=== PATIENT | female | born 2000 | race Caucasian/White ===

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

== ENCOUNTER 2022-02-01 06:49 | Emergency (ER) | payer OTHER ==
[~2022-02-01] VITALS: Ht 157.4 cm; Wt 52.2 kg
[~2022-02-01 06:49] MED LIST changes: +ONDANSETRON4 MG SL
[2022-02-01 07:30] LABS: BASO % 0.4 % (0.0-1.0); EOS % 0.3 % (1.0-4.0); HEMATOCRIT 48.2 % (37.0-47.0); LYMPH # 1.5 10*3/uL (1.3-4.4); LYMPH % 19.5 % (27.0-41.0); MEAN CELL VOLUME 93.2 fl (81.0-99.0); MEAN CORPUSCULAR HGB 31.5 pg (27.0-31.0); MEAN CORPUSCULAR HGB CONC 33.8 g/dl (33.0-37.0); MEAN PLATELET VOLUME 9.2 fl (9.6-12.3); MONO # 0.6 10*3/uL (0.1-1.0); MONO % 7.9 % (3.0-9.0); NEUT # 5.6 10*3/uL (2.3-7.9); NEUT % 70.9 % (47.0-73.0); PLATELET COUNT AUTOMATED 337 10*3/uL (130-400); RED BLOOD COUNT 5.17 10*6/uL (4.10-5.10); RED CELL DISTRI WIDTH 11.9 % (0-14.5); WHITE BLOOD COUNT 7.9 10*3/uL (4.8-10.8)
[2022-02-01 08:15] LABS: ALKALINE PHOSPHATASE 77 U/L (45-117); BUN 2 mg/dl (7-24); CHLORIDE 108 mmol/L (98-107); SGPT/ALT 20 U/L (12-78); SODIUM 140 mmol/L (136-145)
[2022-02-01 10:03] LABS: BILIRUBIN Negative (Negative); BLOOD Negative (Negative); CLARITY Clear (Clear); COLOR Yellow (Yellow); GLUCOSE Negative (Negative); KETONE Negative (Negative); LEUKO ESTERASE Negative (Negative); NITRITE Negative (Negative)
[2022-02-01 10:21] LABS: PH 8.5 (4.5-8.0)
[2022-02-01 10:22] LABS: BACTERIA 2+; MUCOUS 2+
[2022-02-01 13:01] LABS: URINE AMPHETAMINES < 1000 (1000ng/ml); URINE BARBITURATES < 200 (200ng/ml); URINE BENZODIAZEPINES < 200 (200ng/ml); URINE CANNABINOIDS (THC) > 50 (50ng/ml); URINE COCAINE < 300 (300ng/ml); URINE METHADONE < 300 (300ng/ml); URINE OPIATES < 300 (300ng/ml)
[2022-02-01 13:12] LABS: URINE PHENCYCLIDINE < 25 (25ng/ml)
== END 2022-02-01 13:37 | disposition home or self-care (01) ==
LOC: ED 06:49
PROVIDERS: Family Medicine
DX: B34.9 Viral infection, unspecified (principal); Z20.822 Contact with and (suspected) exposure to COVID-19; F43.21 Adjustment disorder with depressed mood; F17.200 Nicotine dependence, unspecified, uncomplicated

== ENCOUNTER 2022-05-31 09:28 | Emergency (ER) | payer OTHER ==
[~2022-05-31] VITALS: Ht 157.4 cm; Wt 63.5 kg
[2022-05-31] MEDS ORDERED: DEXAMETHASONE6 MG PO (12:07)
[2022-06-02] MEDS ORDERED: Motrin,Rufen800 MG PO (14:54)
[2022-06-02] MEDS ORDERED: PHENERGAN25 M3 PO (14:54)
== END 2022-05-31 12:21 | disposition home or self-care (01) ==
LOC: ED 09:28
DX: J02.9 Acute pharyngitis, unspecified (principal); F41.9 Anxiety disorder, unspecified

== ENCOUNTER 2022-08-23 14:41 | Emergency (ER) | payer OTHER ==
[~2022-08-23] VITALS: Ht 157.4 cm; Wt 63.5 kg
[~2022-08-23 14:41] MED LIST changes: +DEXAMETHASONE6 MG PO; +Motrin,Rufen800 MG PO; +PHENERGAN25 M3 PO
[2022-08-23] MEDS ORDERED: ONDANSETRON4 MG SL (16:04)
== END 2022-08-23 16:06 | disposition home or self-care (01) ==
LOC: ED 14:41
DX: B34.9 Viral infection, unspecified (principal); F41.9 Anxiety disorder, unspecified

== ENCOUNTER 2022-09-06 10:30 | Emergency (ER) | payer OTHER ==
[~2022-09-06] VITALS: Ht 160 cm; Wt 63.5 kg
[2022-09-06] MEDS ORDERED: ONDANSETRON4 MG SL (10:48)
== END 2022-09-06 11:15 | disposition home or self-care (01) ==
LOC: ED 10:30
DX: R11.2 Nausea with vomiting, unspecified (principal); F41.9 Anxiety disorder, unspecified

== ENCOUNTER 2022-09-08 13:27 | Emergency (ER) | payer OTHER ==
[~2022-09-08] VITALS: Ht 157.4 cm; Wt 59.0 kg
[2022-09-08] MEDS ORDERED: BROMFED DM COU118 M2 PO (15:51)
== END 2022-09-08 16:11 | disposition home or self-care (01) ==
LOC: ED 13:27
DX: J02.8 Acute pharyngitis due to other specified organisms (principal); F41.9 Anxiety disorder, unspecified

== ENCOUNTER 2022-09-13 19:10 | Emergency (ER) | payer OTHER ==
[~2022-09-13] VITALS: Ht 160 cm; Wt 72.6 kg
[~2022-09-13 19:10] MED LIST changes: +BROMFED DM COU118 M2 PO
[2022-09-13] MEDS ORDERED: AMOX-CLAV 875-1 EACH PO (19:25)
== END 2022-09-13 20:50 | disposition home or self-care (01) ==
LOC: ED 19:10
DX: S61.254A Open bite of right ring finger without damage to nail, initial encounter (principal); W50.3XXA Accidental bite by another person, initial encounter; Y93.89 Activity, other specified; Y92.89 Other specified places as the place of occurrence of the external cause; Y99.8 Other external cause status

== ENCOUNTER 2023-01-03 19:20 | Emergency (ER) | payer OTHER ==
[~2023-01-03 19:20] MED LIST changes: +AMOX-CLAV 875-1 EACH PO
== END 2023-01-03 20:20 | disposition left against medical advice (07) ==
LOC: ED 19:20
DX: Z20.822 Contact with and (suspected) exposure to COVID-19 (principal); Z53.21 Procedure and treatment not carried out due to patient leaving prior to being seen by health care provider

== ENCOUNTER 2023-01-12 18:54 | Emergency (ER) | payer OTHER ==
[~2023-01-12] VITALS: Ht 165.1 cm; Wt 59.0 kg
== END 2023-01-12 21:10 | disposition home or self-care (01) ==
LOC: ED 18:54
DX: J02.9 Acute pharyngitis, unspecified (principal); R11.2 Nausea with vomiting, unspecified; R05.9 Cough, unspecified; B97.4 Respiratory syncytial virus as the cause of diseases classified elsewhere; F41.9 Anxiety disorder, unspecified; Z20.822 Contact with and (suspected) exposure to COVID-19

== ENCOUNTER → 2023-01-26 | Outpatient (CLI) | payer OTHER | END | disposition home or self-care (01) | LOC: RAD 17:26 | PROVIDERS: ATTEND Pediatrics | DX: R05.9 Cough, unspecified (principal) ==

== ENCOUNTER 2023-02-03 21:32 | Emergency (ER) | payer OTHER ==
[~2023-02-03] VITALS: Ht 157.4 cm; Wt 59.0 kg
== END 2023-02-03 23:00 | disposition home or self-care (01) ==
LOC: ED 21:32
DX: U07.1 COVID-19 (principal); R19.7 Diarrhea, unspecified

== ENCOUNTER 2023-02-13 16:41 | Emergency (ER) | payer OTHER ==
[~2023-02-13] VITALS: Ht 157.4 cm; Wt 59.0 kg
[2023-02-13] MEDS ORDERED: AVPAK AZITHROM250 M1 PO (17:14)
[2023-02-13] MEDS ORDERED: PREDNISONE20 M1 PO (17:14)
== END 2023-02-13 17:19 | disposition home or self-care (01) ==
LOC: ED 16:41
DX: J40 Bronchitis, not specified as acute or chronic (principal); F17.290 Nicotine dependence, other tobacco product, uncomplicated; F43.20 Adjustment disorder, unspecified

== ENCOUNTER → 2023-02-16 | Outpatient (CLI) | payer OTHER ==
[~2023-02-16] MED LIST changes: +AVPAK AZITHROM250 M1 PO; +PREDNISONE20 M1 PO
[2023-02-16 15:27] LABS: BASO % 0.5 % (0.0-1.0); EOS # 0.1 10*3/uL (0.0-0.4); EOS % 0.8 % (1.0-4.0); HEMATOCRIT 40.4 % (37.0-47.0); LYMPH # 1.5 10*3/uL (1.3-4.4); LYMPH % 19.9 % (27.0-41.0); MEAN CELL VOLUME 94.2 fl (81.0-99.0); MEAN CORPUSCULAR HGB 31.9 pg (27.0-31.0); MEAN CORPUSCULAR HGB CONC 33.9 g/dl (33.0-37.0); MEAN PLATELET VOLUME 9.6 fl (9.6-12.3); MONO # 0.6 10*3/uL (0.1-1.0); MONO % 8.1 % (3.0-9.0); NEUT # 5.5 10*3/uL (2.3-7.9); NEUT % 70.3 % (47.0-73.0); PLATELET COUNT AUTOMATED 291 10*3/uL (130-400); RED BLOOD COUNT 4.29 10*6/uL (4.10-5.10); RED CELL DISTRI WIDTH 11.3 % (0-14.5); WHITE BLOOD COUNT 7.8 10*3/uL (4.8-10.8)
[2023-02-17 09:08] LABS: IMMUNOGLOBULIN G, QNT 1072 mg/dL (586-1602); IMMUNOGLOBULIN M, QNT 47 mg/dL (26-217)
== END | disposition home or self-care (01) ==
LOC: LAB 14:58
PROVIDERS: ATTEND Pediatrics
DX: M35.9 Systemic involvement of connective tissue, unspecified (principal)

== ENCOUNTER 2023-02-21 19:11 | Emergency (ER) | payer OTHER ==
[~2023-02-21] VITALS: Ht 157.4 cm; Wt 61.2 kg
[2023-02-21] MEDS ORDERED: AMOX-CLAV 875-1 EACH PO (20:33)
== END 2023-02-21 21:01 | disposition home or self-care (01) ==
LOC: ED 19:11
DX: J02.8 Acute pharyngitis due to other specified organisms (principal); Z20.822 Contact with and (suspected) exposure to COVID-19; B96.89 Other specified bacterial agents as the cause of diseases classified elsewhere; R11.2 Nausea with vomiting, unspecified; F17.210 Nicotine dependence, cigarettes, uncomplicated

== ENCOUNTER 2023-03-01 18:18 | Emergency (ER) | payer OTHER ==
[~2023-03-01] VITALS: Ht 157.4 cm; Wt 61.2 kg
== END 2023-03-01 20:18 | disposition home or self-care (01) ==
LOC: ED 18:18
DX: U07.1 COVID-19 (principal); F41.9 Anxiety disorder, unspecified; Z20.822 Contact with and (suspected) exposure to COVID-19

== ENCOUNTER 2023-03-09 20:07 | Emergency (ER) | payer OTHER ==
[~2023-03-09] VITALS: Ht 157.4 cm; Wt 59.0 kg
[2023-03-09 21:39] LABS: BASO % 0.3 % (0.0-1.0); EOS # 0.1 10*3/uL (0.0-0.4); EOS % 0.6 % (1.0-4.0); HEMATOCRIT 41.3 % (37.0-47.0); LYMPH # 1.7 10*3/uL (1.3-4.4); LYMPH % 14.6 % (27.0-41.0); MEAN CELL VOLUME 95.8 fl (81.0-99.0); MEAN CORPUSCULAR HGB 31.3 pg (27.0-31.0); MEAN CORPUSCULAR HGB CONC 32.7 g/dl (33.0-37.0); MEAN PLATELET VOLUME 9.8 fl (9.6-12.3); MONO # 0.8 10*3/uL (0.1-1.0); NEUT # 9.2 10*3/uL (2.3-7.9); NEUT % 77.2 % (47.0-73.0); PLATELET COUNT AUTOMATED 325 10*3/uL (130-400); RED BLOOD COUNT 4.31 10*6/uL (4.10-5.10); RED CELL DISTRI WIDTH 11.5 % (0-14.5); WHITE BLOOD COUNT 11.9 10*3/uL (4.8-10.8)
[2023-03-09 22:03] LABS: ALKALINE PHOSPHATASE 59 U/L (46-116); BUN 11 mg/dl (9-23); CHLORIDE 103 mmol/L (98-107); LIPASE 28 U/L (12-53); POTASSIUM 4.1 mmol/L (3.4-5.1); SGPT/ALT 20 U/L (5-49); TOTAL PROTEIN 7.5 gm/dL (6.0-8.0)
[2023-03-09 22:22] LABS: B-hCG (QUALITATIVE) NEGATIVE (NEGATIVE)
[2023-03-09] MEDS ORDERED: PAXLOVID 300-11 EAC3 PO (23:15)
[2023-03-09] MEDS ORDERED: ONDANSETRON4 MG SL (23:15)
== END 2023-03-10 00:12 | disposition home or self-care (01) ==
LOC: ED 20:07
PROVIDERS: Family Medicine
DX: U07.1 COVID-19 (principal); R11.2 Nausea with vomiting, unspecified; R19.7 Diarrhea, unspecified; F41.9 Anxiety disorder, unspecified

== ENCOUNTER 2023-07-23 10:49 | Emergency (ER) | payer OTHER ==
[~2023-07-23] VITALS: Ht 157.4 cm; Wt 63.5 kg
[~2023-07-23 10:49] MED LIST changes: +PAXLOVID 300-11 EAC3 PO
[2023-07-23 11:15] LABS: BILIRUBIN Negative (Negative); BLOOD Negative (Negative); CLARITY Cloudy (Clear); COLOR Yellow (Yellow); GLUCOSE Negative (Negative); KETONE Negative (Negative); LEUKO ESTERASE 2+ (Negative); NITRITE Negative (Negative); PH 5.5 (4.5-8.0)
[2023-07-23 11:23] LABS: BASO % 0.4 % (0.0-1.0); EOS # 0.1 10*3/uL (0.0-0.4); EOS % 0.7 % (1.0-4.0); HEMATOCRIT 37.9 % (37.0-47.0); LYMPH # 1.5 10*3/uL (1.3-4.4); LYMPH % 20.5 % (27.0-41.0); MEAN CELL VOLUME 94.5 fl (81.0-99.0); MEAN CORPUSCULAR HGB 31.9 pg (27.0-31.0); MEAN CORPUSCULAR HGB CONC 33.8 g/dl (33.0-37.0); MEAN PLATELET VOLUME 9.6 fl (9.6-12.3); MONO # 0.6 10*3/uL (0.1-1.0); MONO % 8.8 % (3.0-9.0); NEUT # 4.9 10*3/uL (2.3-7.9); NEUT % 69.2 % (47.0-73.0); PLATELET COUNT AUTOMATED 260 10*3/uL (130-400); RED BLOOD COUNT 4.01 10*6/uL (4.10-5.10); RED CELL DISTRI WIDTH 11.9 % (0-14.5); WHITE BLOOD COUNT 7.1 10*3/uL (4.8-10.8)
[2023-07-23 11:29] LABS: BACTERIA 3+; EPITHELIAL CELLS 51-100
[2023-07-23 11:54] LABS: BUN 6 mg/dl (9-23); CHLORIDE 106 mmol/L (98-107); POTASSIUM 3.6 mmol/L (3.4-5.1)
[2023-07-23] MEDS ORDERED: AMOXICILLIN 875 MG TAB PO ONE (12:35)
[2023-07-23] MEDS ORDERED: AMOXICILLIN875 MG PO (12:35)
== END 2023-07-23 13:20 | disposition home or self-care (01) ==
LOC: ED 10:49
PROVIDERS: Nurse Practitioner Family
DX: O20.0 Threatened abortion (principal); F41.9 Anxiety disorder, unspecified; Z3A.01 Less than 8 weeks gestation of pregnancy

== ENCOUNTER → 2023-12-23 | Outpatient (CLI) | payer OTHER ==
[~2023-12-23] MED LIST changes: +AMOXICILLIN875 MG PO
[2023-12-24 09:08] LABS: HBSAG Negative (Negative); HEP B CORE AB, IGM Negative (Negative); HEPATITIS C ANTIBODY Non Reactive (Non Reactive)
[2023-12-28 09:08] LABS: HSV-2 DNA Negative (Negative)
== END | disposition home or self-care (01) ==
LOC: LAB 15:41
PROVIDERS: ATTEND Pediatrics
DX: Z20.2 Contact with and (suspected) exposure to infections with a predominantly sexual mode of transmission (principal)

== ENCOUNTER 2024-01-29 15:59 | Emergency (ER) | payer OTHER ==
[~2024-01-29] VITALS: Ht 160 cm; Wt 63.5 kg
[2024-01-29] MEDS ORDERED: Ondansetron Hydrochloride 4 MG/2 ML VIAL IV ONE (16:40)
[2024-01-29] MEDS ORDERED: SODIUM CHLORIDE 0.9% 500 ML IV ONE (16:40)
[2024-01-29 16:53] LABS: BASO % 0.4 % (0.0-1.0); EOS # 0.1 10*3/uL (0.0-0.4); EOS % 0.7 % (1.0-4.0); HEMATOCRIT 41.7 % (37.0-47.0); MEAN CELL VOLUME 96.8 fl (81.0-99.0); MEAN CORPUSCULAR HGB 32.5 pg (27.0-31.0); MEAN CORPUSCULAR HGB CONC 33.6 g/dl (33.0-37.0); MEAN PLATELET VOLUME 9.2 fl (9.6-12.3); MONO # 0.7 10*3/uL (0.1-1.0); MONO % 9.1 % (3.0-9.0); NEUT # 4.8 10*3/uL (2.3-7.9); NEUT % 67.6 % (47.0-73.0); PLATELET COUNT AUTOMATED 311 10*3/uL (130-400); RED BLOOD COUNT 4.31 10*6/uL (4.10-5.10); RED CELL DISTRI WIDTH 12.2 % (0-14.5); WHITE BLOOD COUNT 7.1 10*3/uL (4.8-10.8)
[2024-01-29 16:59] LABS: BILIRUBIN Negative (Negative); BLOOD Negative (Negative); CLARITY Clear (Clear); COLOR Yellow (Yellow); GLUCOSE Negative (Negative); KETONE Trace (Negative); LEUKO ESTERASE Trace (Negative); NITRITE Negative (Negative); PH 6.5 (4.5-8.0); SPECIFIC GRAVITY 1.025 (1.001-1.030)
[2024-01-29 17:13] LABS: ALKALINE PHOSPHATASE 56 U/L (46-116); BUN 9 mg/dl (9-23); CHLORIDE 106 mmol/L (98-107); POTASSIUM 4.1 mmol/L (3.4-5.1); SGPT/ALT 23 U/L (5-49); TOTAL PROTEIN 7.9 gm/dL (6.0-8.0)
[2024-01-29] MEDS ORDERED: Ondansetron4 MG PO (17:36)
[2024-01-29 17:45] LABS: BACTERIA 1+; EPITHELIAL CELLS 51-100
[2024-01-29] MEDS ORDERED: Ondansetron 4 MG 2 TAB ED PACK PO SCH (18:15)
== END 2024-01-29 18:36 | disposition home or self-care (01) ==
LOC: ED 15:59
PROVIDERS: Nurse Practitioner Family
DX: R11.2 Nausea with vomiting, unspecified (principal); Z20.822 Contact with and (suspected) exposure to COVID-19; R19.7 Diarrhea, unspecified; F41.9 Anxiety disorder, unspecified; Z79.899 Other long term (current) drug therapy

== ENCOUNTER 2024-06-11 20:04 | Emergency (ER) | payer OTHER ==
[~2024-06-11] VITALS: Wt 68.0 kg
[~2024-06-11 20:04] MED LIST changes: +Ondansetron4 MG PO
== END 2024-06-11 21:11 | disposition home or self-care (01) ==
LOC: ED 20:04
DX: S93.402A Sprain of unspecified ligament of left ankle, initial encounter (principal); W01.0XXA Fall on same level from slipping, tripping and stumbling without subsequent striking against object, initial encounter; Y93.89 Activity, other specified; Y92.89 Other specified places as the place of occurrence of the external cause; Y99.8 Other external cause status

== ENCOUNTER 2024-09-21 16:35 | Emergency (ER) | payer OTHER ==
[~2024-09-21] VITALS: Ht 162.5 cm; Wt 68.0 kg
[2024-09-21] MEDS ORDERED: VIBRAMYCIN100 MG PO (17:36)
[2024-09-21] MEDS ORDERED: Water, Sterile 10 ML VIAL ONE (18:04)
== END 2024-09-21 17:52 | disposition home or self-care (01) ==
LOC: ED 16:35
DX: A64 Unspecified sexually transmitted disease (principal); F41.9 Anxiety disorder, unspecified

== ENCOUNTER → 2024-10-13 | Outpatient (CLI) | payer OTHER ==
[~2024-10-13] MED LIST changes: +VIBRAMYCIN100 MG PO
== END ==
LOC: LAB 13:49
PROVIDERS: ATTEND Pediatrics
DX: N39.0 Urinary tract infection, site not specified (principal); Z20.2 Contact with and (suspected) exposure to infections with a predominantly sexual mode of transmission

== ENCOUNTER → 2024-12-14 | Outpatient (CLI) | payer OTHER | END | disposition home or self-care (01) | LOC: US 13:10 | PROVIDERS: ATTEND Nurse Practitioner Women's Health | DX: N64.52 Nipple discharge (principal) ==

== ENCOUNTER → 2024-12-19 | Outpatient (CLI) | payer OTHER ==
[2024-12-21 00:06] LABS: HSV-2 DNA Negative (Negative)
== END | disposition home or self-care (01) ==
LOC: LAB 13:54
PROVIDERS: ATTEND Pediatrics
DX: Z20.2 Contact with and (suspected) exposure to infections with a predominantly sexual mode of transmission (principal)